=== PATIENT | female | born 1960 | race Caucasian/White ===

== ENCOUNTER → 2024-05-05 | Outpatient (CLI) | payer OTHER ==
[~2024-05-05] MED LIST: METF500; RALO60 PO; ROSU10TA PO
== END | disposition home or self-care (01) ==
LOC: LAB SHORT 14:45 → LAB 14:45
DX: R30.0 Dysuria (principal)
CPT/HCPCS: 87077; 87086; 87147; 87186

== ENCOUNTER → 2024-10-11 | Outpatient (CLI) | payer OTHER | LOC: LAB SHORT 13:14 → LAB 13:14 | DX: N39.0 Urinary tract infection, site not specified (principal) | CPT/HCPCS: 87086 ==

== ENCOUNTER 2024-11-05 09:06 | Day surgery (SDC) | payer OTHER ==
[~2024-11-05] VITALS: Ht 162.6 cm; Wt 99.2 kg
[2024-11-05] MEDS ORDERED: ASPI81CH (09:17)
[2024-11-05] MEDS ORDERED: FOLI1 (09:17)
[2024-11-05] MEDS ORDERED: METTREX2.5 PO (09:17)
[2024-11-05 11:48] VITALS: BP 130/79
== END 2024-11-05 11:50 | disposition home or self-care (01) ==
LOC: ORSCSDS 09:06
PROVIDERS: Surgery
PROC: 0DBN8ZX Excision of Sigmoid Colon, Via Natural or Artificial Opening Endoscopic, Diagnostic (ICD-10-PCS; principal; 2024-11-05 10:15)
PROC: 0DBK8ZX Excision of Ascending Colon, Via Natural or Artificial Opening Endoscopic, Diagnostic (ICD-10-PCS; principal; 2024-11-05 10:15)
PROC: 0DBL8ZX Excision of Transverse Colon, Via Natural or Artificial Opening Endoscopic, Diagnostic (ICD-10-PCS; principal; 2024-11-05 10:15)
DX: Z12.11 Encounter for screening for malignant neoplasm of colon (principal); D12.2 Benign neoplasm of ascending colon; K51.40 Inflammatory polyps of colon without complications; Z86.0102 Personal history of hyperplastic colon polyps; Z85.3 Personal history of malignant neoplasm of breast; E88.810 Metabolic syndrome; Z79.82 Long term (current) use of aspirin; Z79.84 Long term (current) use of oral hypoglycemic drugs; Z79.899 Other long term (current) drug therapy; Z87.891 Personal history of nicotine dependence
CPT/HCPCS: 82947; 88305; J2704; J7120